=== PATIENT | female | born 1980 | race Caucasian/White ===

== ENCOUNTER 2016-08-29 10:30 | Emergency (ER) | payer SELFPAY ==
--- NOTE | 2016-08-29 13:23 | ED ORDER SUMMARY ---
..... Patient: ZACH MTZ OrderSheet [facility] VisitID: [id number] [place] [address] 36y, F Registration Date/Time: 08/29/2016 ORDER SHEET Weight: 113.3 kg (stated) Allergies: Penicillin GENERAL ORDERS: MEDICATION ORDERS: Ibuprofen PO 800 mg (NOW) (11:26 08/29/2016 EHassamireya R.N. verbal order read back to Alia Jerome) (11:28 EHassan R.N.) Hydrocodone-APAP PO 5/325 mg (NOW, HIGH ALERT MEDICATION) (12:41 08/29/2016 HBivens A.R.N.P.) (12:47 EHassan R.N.) IV FLUIDS: ORDER SHEET NOTES: [Electronically signed by Greer RowellRJakeN.PJake (13:41 08/29/2016)] [Electronically signed by Rajwinder Quach R.N. (17:57 08/29/2016)] [Electronically locked/signed by Rajwinder Quach R.N. (17:57 08/29/2016)]
--- NOTE | 2016-08-29 13:23 | ED CLINICAL REPORT ---
Clinical Report - Physicians/Mid Levels [facility] [address] [place] [address] 08/29/2016 10:30 Patient: ZACH MTZ Time Seen: 12:33; initial patient contact, initial documentation, patient care assumed. Arrived- By private vehicle. Historian- patient. HISTORY OF PRESENT ILLNESS Chief Complaint: DENTAL PAIN. This started last night and is still present. Pain described as severe. No sore throat, mouth sores, nasal discharge or congestion or ear pain. She has had toothache and swelling of the jaw and face. (tooth has been breaking off, and more broke off last night with pain, afraid to see dentist). Similar symptoms previously: Chronically. Recent medical care: Not recently seen/assessed. REVIEW OF SYSTEMS No fever or difficulty breathing. All systems otherwise negative, except as recorded above. PAST HISTORY See nurses notes. PROBLEMS: Ureterolithiasis. UTI - Urinary Tract Infection. Substance Abuse. Headache. Sinusitis. ADD - Attention Deficit Disorder. Dental Pain. Dental Caries. --11:11 Nanda Coleman, RJakeN. ADDITIONAL SURGERIES: no known surgeries. SOCIAL HISTORY Light tobacco smoker. Occasional alcohol use. History of occasional drug use: marijuana. Recently used drugs yesterday. No recent travel. Is a local resident. FAMILY HISTORY Negative. ADDITIONAL NOTES The nursing notes have been reviewed with agreement regarding the chief complaint, HPI, ROS, PMH and patient medications and allergies. PHYSICAL EXAM Vital Signs: 08/29/2016 11:09 BP: 125/66. HR: 100. RR: 18. O2 saturation: 98%. Temp: 97.7 F. Pain level now: 1010. Have been reviewed as normal and appear to be correct. Appearance: Alert. No acute distress. Head: Normal external inspection. Eyes: Pupils equal, round and reactive to light. Conjunctivae and eyelids normal. ENT: Moderate, extensive dental decay (lower left second molar) (tooth broken off at gum line with obvious decay and other molars capped). No gingival tenderness, induration, swelling or fluctuance. Ears normal. Nose normal. Pharynx normal. Lips normal. Gums normal. No trismus present. Uvula midline. Neck: Normal inspection. Trachea midline. No adenopathy. Thyroid normal. Neck supple. Respiratory: No respiratory distress. Skin: Normal skin color. No rash. Normal skin turgor. Extremities: Extremities exhibit normal ROM. Extremities nontender. Neuro: Oriented X 3. No motor deficit. No sensory deficit. PROGRESS AND PROCEDURES Patient counseled in person regarding the patient's stable condition and diagnosis. 12:39. Differential Diagnosis: Other possible considerations: dental pain, abscess, caries. Above considerations are based on history and physical exam. Differential diagnosis was discussed with patient. Disposition: Discharged home in good and improved condition (12:40). Condition: good and stable. CLINICAL IMPRESSION Dental caries (extensive decay) INSTRUCTIONS Warnings: GENERAL WARNINGS: Return or contact your physician immediately if your condition worsens or changes unexpectedly, if not improving as expected, or if other problems arise. Specifically return if problem worsens. Prescription Medications: Zofran 4 mg: Take 1 orally every six hours as needed for nausea/vomiting. Dispense ten (10). No refills. Substitution is permissible. Cleocin 300 mg: take 1 capsule orally every 6 hours for 7 days. No refills. Substitution is permissible. [place] 5 mg / 325 mg tablets: take 1 to 2 orally every 6 hours as needed for pain. Dispense fifteen (15). No refills. Substitution is permissible. Follow-up: Follow up with a dentist in about three days even if well. Call for an appointment. Summary of care provided to patient. Understanding of the discharge instructions verbalized by patient. (Electronically signed by Greer Rowell A.R.N.P. 08/29/2016 13:41)
--- NOTE | 2016-08-29 13:23 | ED ORDER SUMMARY ---
..... Patient: ZACH MTZ OrderSheet [facility] VisitID: [id number] [place] [address] 36y, F Registration Date/Time: 08/29/2016 ORDER SHEET Weight: 113.3 kg (stated) Allergies: Penicillin GENERAL ORDERS: MEDICATION ORDERS: Ibuprofen PO 800 mg (NOW) (11:26 08/29/2016 EHassamireya R.N. verbal order read back to Alia Jerome) (11:28 EHassan R.N.) Hydrocodone-APAP PO 5/325 mg (NOW, HIGH ALERT MEDICATION) (12:41 08/29/2016 HBivens A.R.N.P.) (12:47 EHassan R.N.) IV FLUIDS: ORDER SHEET NOTES: [Electronically signed by Greer RowellRJakeN.PJake (13:41 08/29/2016)] [Electronically signed by Rajwinder Quach R.N. (17:57 08/29/2016)] [Electronically locked/signed by Rajwinder Quach R.N. (17:57 08/29/2016)]
--- NOTE | 2016-08-29 13:23 | ED NURSING NOTES ---
Clinical Report - Nurses [facility] [address] [place] [address] 08/29/2016 10:30 Patient: ZACH MTZ TRIAGE Triage time 1107 AM. Acuity: LEVEL 5. Chief Complaint: LEFT LOWER TOOTHACHE and CHIPPED TOOTH and SWELLING OF JAW / FACE. Alert. No acute distress. SEPSIS SCREEN: Sepsis Screen. Negative (no infection suspected/documented). --11:14 Nanda Coleman R.N. 11:09 08/29/16. BP: 125/66 (regular adult cuff) taken on the left arm, via an automated monitor, while sitting. HR: 100. RR: 18. O2 saturation: 98% on room air. Temp: 97.7 F (oral). Pain level now: 02/13. --11:14 Nanda Coleman R.N. Weight: 113.3 kg stated. Height/Length: 64 inches Per Patient. BMI: 42.9. --11:12 Nanda Coleman R.N. Medications None. --11:11 Nanda Coleman R.N. Medication/allergy information source: the patient. --11:14 Nanda Coleman R.N. Allergies Penicillin. --11:11 Nanda Coleman R.N. History Arrived by private vehicle. Historian: patient. Accompanied by family. Primary physician (None). ( Pt states "scared of going to the dentist and a piece of my left side bottom tooth broke up" Here for some antibiotics). This started last night. She has no dental appointment scheduled. She has had facial pain and ear pain. No fever, hoarseness or mouth sores. She has had swelling of the face and a toothache. Treatment SYSTEMS SPEC: Took Tylenol and ibuprofen. PAST MEDICAL HX: Dental caries. Immunizations: status is unknown. SOCIAL HX: Current every day light tobacco smoker (cigarette)- less than 1/2 a pack per day. Occasional alcohol use; consumes beer occasionally. History of drug use: marijuana. Recently used drugs yesterday. No infectious disease exposure. ABUSE ASSESSMENT: No report of abuse. SELF HARM ASSESSMENT: A self harm assessment was performed. The patient answered "no" to the question "Do you have thoughts of harming or killing yourself?" and "Have you recently had thoughts about harming or killing others?". FALL RISK ASSESSMENT: Fall risk assessment completed. No fall risk identified. NUTRITIONAL RISK ASSESSMENT: The nutritional risk assessment revealed no deficiencies. FUNCTIONAL ASSESSMENT: Functional assessment: no impairments noted. LEARNING NEEDS ASSESSMENT: The learning needs assessment revealed no barriers. SKIN INTEGRITY ASSESSMENT: Skin integrity risk assessment completed. No skin integrity risk identified. --11:14 Nanda Coleman R.N. PROBLEMS: Ureterolithiasis. UTI - Urinary Tract Infection. Substance Abuse. Headache. Sinusitis. ADD - Attention Deficit Disorder. Dental Pain. Dental Caries. --11:11 Nanda Coleman R.N. ADDITIONAL SURGERIES: no known surgeries. Interventions ID band on patient. --11:14 Nanda Coleman R.N. PHYSICAL ASSESSMENT Ambulatory to room. GENERAL / NEURO / PSYCH: Alert. Oriented X 4. Appears in pain and anxious. HEENT: Pharynx within normal limits. Voice within normal limits. Dental tenderness. Dental decay (left lower molar area). Mucous membranes are pink. RESPIRATORY: Respirations not labored. CVS: Capillary refill less than 2 seconds. SKIN: Skin is warm and dry. Normal skin turgor. --11:15 Nanda Coleman R.N. NURSING PROGRESS NOTES The initial plan of care for this patient has been created This plan of care was discussed with the patient. Reassurance given. Patient identifiers checked. Call light placed in reach. Side rails up x 1. Bed placed in lowest position. Brakes of bed on. Patient ready for evaluation- ED physician notified. --11:15 Nanda Coleman R.N. 11:28 08/29/2016 Ibuprofen PO Tablets 800 mg given. Allergies verified and confirmed 5 rights. --11:28 Nanda Coleman R.N. Cold pack applied. Reassurance given. The patient is calm. Overall patient status is the same- she states feels the same. HEENT: The patient reports earache. --12:04 Nanda Coleman R.N. 12:03 08/29/16. BP: 128/54 (regular adult cuff) taken on the left arm, via an automated monitor, while sitting. HR: 84. RR: 14. O2 saturation: 98% on room air. Pain level now: 01/14. --12:04 Nanda Coleman R.N. 12:39 08/29/16. BP: 128/67 (regular adult cuff) taken on the left arm, via an automated monitor, while sitting. HR: 99. RR: 14. O2 saturation: 100% on room air. Temp: 98.2 F (oral). Pain level now: 12/14. --12:40 Nanda Coleman R.N. Reassurance given. The patient is calm. Overall patient status is improved- she states feels better. --12:40 Nanda Coleman R.N. 12:37 08/29/2016 Ibuprofen PO Response: no adverse reaction pain is improving. --12:47 Nanda Coleman R.N. 12:47 08/29/2016 Hydrocodone-APAP (Hydrocodone-Acetaminophen) PO 5/325 mg Tablets 1 tab given. Allergies verified, confirmed 5 rights and sedative warning given to the patient and patient's family. --12:47 Nanda Coleman R.N. DISPOSITION / DISCHARGE Discharge instructions provided and reviewed with the patient. Patient verbalized understanding. Written instructions provided in German. The patient was discharged home. She left the Emergency Department ambulatory and via private vehicle. Wearing Apparel Presser driving. Medication list reviewed and validated. --17:56 Rajwinder Quach R.N. 12:39 08/29/16. BP: 128/67 (regular adult cuff) taken on the left arm, via an automated monitor, while sitting. HR: 99. RR: 14. O2 saturation: 100% on room air. Temp: 98.2 F (oral). Pain level now: 12/14. 12:03 08/29/16. BP: 128/54 (regular adult cuff) taken on the left arm, via an automated monitor, while sitting. HR: 84. RR: 14. O2 saturation: 98% on room air. Pain level now: 01/14. 11:09 08/29/16. BP: 125/66 (regular adult cuff) taken on the left arm, via an automated monitor, while sitting. HR: 100. RR: 18. O2 saturation: 98% on room air. Temp: 97.7 F (oral). Pain level now: 02/13. --17:56 Rajwinder Quach R.N. Locked/Released at 08/29/2016 17:57 by Rajwinder Quach R.N.
--- NOTE | 2016-08-29 13:23 | ED NURSING NOTES ---
Clinical Report - Nurses [facility] [address] [place] [address] 08/29/2016 10:30 Patient: ZACH MTZ TRIAGE Triage time 1107 AM. Acuity: LEVEL 5. Chief Complaint: LEFT LOWER TOOTHACHE and CHIPPED TOOTH and SWELLING OF JAW / FACE. Alert. No acute distress. SEPSIS SCREEN: Sepsis Screen. Negative (no infection suspected/documented). --11:14 Nanda Coleman R.N. 11:09 08/29/16. BP: 125/66 (regular adult cuff) taken on the left arm, via an automated monitor, while sitting. HR: 100. RR: 18. O2 saturation: 98% on room air. Temp: 97.7 F (oral). Pain level now: 02/13. --11:14 Nanda Coleman R.N. Weight: 113.3 kg stated. Height/Length: 64 inches Per Patient. BMI: 42.9. --11:12 Nanda Coleman R.N. Medications None. --11:11 Nanda Coleman R.N. Medication/allergy information source: the patient. --11:14 Nanda Coleman R.N. Allergies Penicillin. --11:11 Nanda Coleman R.N. History Arrived by private vehicle. Historian: patient. Accompanied by family. Primary physician (None). ( Pt states "scared of going to the dentist and a piece of my left side bottom tooth broke up" Here for some antibiotics). This started last night. She has no dental appointment scheduled. She has had facial pain and ear pain. No fever, hoarseness or mouth sores. She has had swelling of the face and a toothache. 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 PAST MEDICAL HX: Dental caries. Immunizations: status is unknown. SOCIAL HX: Current every day light tobacco smoker (cigarette)- less than 1/2 a pack per day. Occasional alcohol use; consumes beer occasionally. History of drug use: marijuana. Recently used drugs yesterday. No infectious disease exposure. ABUSE ASSESSMENT: No report of abuse. SELF HARM ASSESSMENT: A self harm assessment was performed. The patient answered "no" to the question "Do you have thoughts of harming or killing yourself?" and "Have you recently had thoughts about harming or killing others?". FALL RISK ASSESSMENT: Fall risk assessment completed. No fall risk identified. NUTRITIONAL RISK ASSESSMENT: The nutritional risk assessment revealed no deficiencies. FUNCTIONAL ASSESSMENT: Functional assessment: no impairments noted. LEARNING NEEDS ASSESSMENT: The learning needs assessment revealed no barriers. SKIN INTEGRITY ASSESSMENT: Skin integrity risk assessment completed. No skin integrity risk identified. --11:14 Nanda Coleman R.N. PROBLEMS: Ureterolithiasis. UTI - Urinary Tract Infection. Substance Abuse. Headache. Sinusitis. ADD - Attention Deficit Disorder. Dental Pain. Dental Caries. --11:11 Nanda Coleman R.N. ADDITIONAL SURGERIES: no known surgeries. Interventions ID band on patient. --11:14 Nanda Coleman R.N. PHYSICAL ASSESSMENT Ambulatory to room. GENERAL / NEURO / PSYCH: Alert. Oriented X 4. Appears in pain and anxious. HEENT: Pharynx within normal limits. Voice within normal limits. Dental tenderness. Dental decay (left lower molar area). Mucous membranes are pink. RESPIRATORY: Respirations not labored. CVS: Capillary refill less than 2 seconds. SKIN: Skin is warm and dry. Normal skin turgor. --11:15 Nanda Coleman R.N. NURSING PROGRESS NOTES The initial plan of care for this patient has been created This plan of care was discussed with the patient. Reassurance given. Patient identifiers checked. Call light placed in reach. Side rails up x 1. Bed placed in lowest position. Brakes of bed on. Patient ready for evaluation- ED physician notified. --11:15 Nanda Coleman R.N. 11:28 08/29/2016 Ibuprofen PO Tablets 800 mg given. Allergies verified and confirmed 5 rights. --11:28 Nanda Coleman R.N. Cold pack applied. Reassurance given. The patient is calm. Overall patient status is the same- she states feels the same. HEENT: The patient reports earache. --12:04 Nanda Coleman R.N. 12:03 08/29/16. BP: 128/54 (regular adult cuff) taken on the left arm, via an automated monitor, while sitting. HR: 84. RR: 14. O2 saturation: 98% on room air. Pain level now: 01/14. --12:04 Nanda Coleman R.N. 12:39 08/29/16. BP: 128/67 (regular adult cuff) taken on the left arm, via an automated monitor, while sitting. HR: 99. RR: 14. O2 saturation: 100% on room air. Temp: 98.2 F (oral). Pain level now: 12/14. --12:40 Nanda Coleman R.N. Reassurance given. The patient is calm. Overall patient status is improved- she states feels better. --12:40 Nanda Coleman R.N. 12:37 08/29/2016 Ibuprofen PO Response: no adverse reaction pain is improving. --12:47 Nanda Coleman R.N. 12:47 08/29/2016 Hydrocodone-APAP (Hydrocodone-Acetaminophen) PO 5/325 mg Tablets 1 tab given. Allergies verified, confirmed 5 rights and sedative warning given to the patient and patient's family. --12:47 Nanda Coleman R.N. DISPOSITION / DISCHARGE Discharge instructions provided and reviewed with the patient. Patient verbalized understanding. Written instructions provided in Bulgarian. The patient was discharged home. She left the Emergency Department ambulatory and via private vehicle. Marketing Technologist driving. Medication list reviewed and validated. --17:56 Rajwinder Quach R.N. 12:39 08/29/16. BP: 128/67 (regular adult cuff) taken on the left arm, via an automated monitor, while sitting. HR: 99. RR: 14. O2 saturation: 100% on room air. Temp: 98.2 F (oral). Pain level now: 12/14. 12:03 08/29/16. BP: 128/54 (regular adult cuff) taken on the left arm, via an automated monitor, while sitting. HR: 84. RR: 14. O2 saturation: 98% on room air. Pain level now: 01/14. 11:09 08/29/16. BP: 125/66 (regular adult cuff) taken on the left arm, via an automated monitor, while sitting. HR: 100. RR: 18. O2 saturation: 98% on room air. Temp: 97.7 F (oral). Pain level now: 02/13. --17:56 Rajwinder Quach R.N. Locked/Released at 08/29/2016 17:57 by Rajwinder Quach R.N.
--- NOTE | 2016-08-29 17:57 | ED MAR SUMMARY ---
..... Medication Administration Record [address] [place] [address] Patient: ZACH MTZ Visit ID: [id number] 36y, F Weight: 113.3 kg Height/Length: 64 in BMI: 42.9 ALLERGIES: Penicillin Given 11:28 08/29/2016 Nanda Coleman RJakeNJake Medication Administered: IBUPROFEN [PO], Dose: 800 mg Tablets PO. Medication Ordered: Ibuprofen PO 800 mg (NOW). Given 12:47 08/29/2016 Nanda Coleman, R.N. Medication Administered: HYDROCODONE-APAP [PO] (HYDROCODONE-ACETAMINOPHEN), Dose: 1 tab 5/325 mg Tablets PO. Medication Ordered: Hydrocodone-APAP PO 5/325 mg (NOW, HIGH ALERT MEDICATION).
--- NOTE | 2016-08-29 17:57 | ED MED RECONCILIATION SUMMARY ---
Patient: ZACH MTZ Medication Reconciliation Report [facility] VisitID: [id number] [place] [address] 36y, F Registration Date/Time: 08/29/2016 Weight: 113.3 kg Height/Length: 64 in. BMI: 42.9 ALLERGIES: Penicillin The patient's Home Medications are listed below: NONE. The source(s) of the original Home Medication information: patient The following Medications were given to the patient in the Emergency Department: Ibuprofen [PO] PO 800 mg, administered: 08/29/2016 11:28:00 AM Hydrocodone-APAP [PO] PO 1 tab, administered: 08/29/2016 12:47:00 PM The following Medications were prescribed to the patient: Zofran 4 mg: Take 1 orally every six hours as needed for nausea/vomiting. Dispense ten (10). No refills. Substitution is permissible. -- Greer Rowell A.R.N.P. Cleocin 300 mg: take 1 capsule orally every 6 hours for 7 days. No refills. Substitution is permissible. -- Greer Rowell A.R.N.P. [place] 5 mg / 325 mg tablets: take 1 to 2 orally every 6 hours as needed for pain. Dispense fifteen (15). No refills. Substitution is permissible. -- Greer Rowell A.R.N.P.
--- NOTE | 2016-08-29 17:57 | ED MAR SUMMARY ---
..... Medication Administration Record [facility] [address] [place] [address] Patient: ZACH MTZ Visit ID: [id number] 36y, F Weight: 113.3 kg Height/Length: 64 in BMI: 42.9 ALLERGIES: Penicillin Given 11:28 08/29/2016 Nanda Coleman RJakeNJake Medication Administered: IBUPROFEN [PO], Dose: 800 mg Tablets PO. Medication Ordered: Ibuprofen PO 800 mg (NOW). Given 12:47 08/29/2016 Nanda Coleman, R.N. Medication Administered: HYDROCODONE-APAP [PO] (HYDROCODONE-ACETAMINOPHEN), Dose: 1 tab 5/325 mg Tablets PO. Medication Ordered: Hydrocodone-APAP PO 5/325 mg (NOW, HIGH ALERT MEDICATION).
--- NOTE | 2016-08-29 17:57 | ED MED RECONCILIATION SUMMARY ---
Patient: ZACH MTZ Medication Reconciliation Report [facility] VisitID: [id number] [place] [address] 36y, F Registration Date/Time: 08/29/2016 Weight: 113.3 kg Height/Length: 64 in. BMI: 42.9 ALLERGIES: Penicillin The patient's Home Medications are listed below: NONE. The source(s) of the original Home Medication information: patient The following Medications were given to the patient in the Emergency Department: Ibuprofen [PO] PO 800 mg, administered: 08/29/2016 11:28:00 AM Hydrocodone-APAP [PO] PO 1 tab, administered: 08/29/2016 12:47:00 PM The following Medications were prescribed to the patient: Zofran 4 mg: Take 1 orally every six hours as needed for nausea/vomiting. Dispense ten (10). No refills. Substitution is permissible. -- Greer Rowell A.R.N.P. Cleocin 300 mg: take 1 capsule orally every 6 hours for 7 days. No refills. Substitution is permissible. -- Greer Rowell A.R.N.P. [place] 5 mg / 325 mg tablets: take 1 to 2 orally every 6 hours as needed for pain. Dispense fifteen (15). No refills. Substitution is permissible. -- Greer Rowell A.R.N.P.
--- NOTE | 2016-08-29 17:57 | ED DISCHARGE INSTRUCTIONS ---
Patient: ZACH MTZ General Instructions [facility] VisitID: [id number] [place] [address] 36y, F Registration Date/Time: 08/29/2016 Dental caries (extensive decay) INSTRUCTIONS Warnings: GENERAL WARNINGS: Return or contact your physician immediately if your condition worsens or changes unexpectedly, if not improving as expected, or if other problems arise. Specifically return if problem worsens. Prescription Medications: Zofran 4 mg: Take 1 orally every six hours as needed for nausea/vomiting. Dispense ten (10). No refills. Substitution is permissible. Cleocin 300 mg: take 1 capsule orally every 6 hours for 7 days. No refills. Substitution is permissible. [place] 5 mg / 325 mg tablets: take 1 to 2 orally every 6 hours as needed for pain. Dispense fifteen (15). No refills. Substitution is permissible. Follow-up: Follow up with a dentist in about three days even if well. Call for an appointment. Summary of care provided to patient. Understanding of the discharge instructions verbalized by patient. ADDITIONAL INFORMATION Dental Cavity A dental cavity is a pit or crater in the enamel surface of the tooth. This exposes the sensitive inner layer of the tooth and causes pain. If untreated, the cavity will get bigger and may cause an infection or abscess in the root of the tooth. An infection in the tooth is a much more serious problem and may require a root canal or removal of the entire tooth. The tooth pain may be made worse by drinking hot or cold fluids. It may spread from the tooth to the ear or jaw on the same side. Home Care: Avoid hot and cold foods, and liquids since your tooth may be sensitive to temperature changes. If your tooth is chipped or cracked, or if there is a large open cavity, apply OIL OF CLOVES (available hsaj-lvm-svbudqg in drug stores) directly to the tooth to reduce pain. Some pharmacies carry an mlsu-klo-lcfkdai "toothache kit." This contains oil of cloves and a paste, which can be applied over the exposed tooth to decrease sensitivity. An ice pack on your jaw over the sore area may help to reduce pain. You may use acetaminophen (Tylenol) or ibuprofen (Motrin, Advil) to control pain, unless another pain medicine was prescribed. [ NOTE: If you have liver disease or ever had a stomach ulcer, talk with your doctor before using these medicines.] If you have signs of an infection, an antibiotic will be given. Take it as directed. Follow-Up with your dentist as directed. Although your pain may go away with the treatment given, only a dentist can fully evaluate and treat this problem to prevent further tooth damage. Get Prompt Medical Attention if any of the following occur: Redness or swelling of the face Pain worsens or spreads to the neck Fever over 100.5 F (38C) Unusual drowsiness; headache or stiff neck; weakness or fainting Pus drains from the tooth or gum Difficulty swallowing or breathing Dental Pain A crack or cavity in the tooth, which exposes the sensitive inner area of the tooth can cause tooth pain. An infection in the gum or the root of the tooth can cause pain and swelling. The pain is often made worse by drinking hot or cold fluids, or biting on hard foods. Pain may spread from the tooth to the ear or jaw on the same side. Home Care: Avoid hot and cold foods and liquids since your tooth may be sensitive to temperature changes. If your tooth is chipped or cracked, or if there is a large open cavity, apply OIL OF CLOVES (available rvnx-iuj-prsxgyr in drug stores) directly to the tooth to reduce pain. Some pharmacies carry an qbtw-pdv-dxbrvqo "toothache kit." This contains a paste, which can be applied over the exposed tooth to decrease sensitivity. A cold pack on your jaw over the sore area may help reduce pain. You may use acetaminophen (Tylenol) or ibuprofen (Motrin, Advil) to control pain, unless another medicine was prescribed. [ NOTE: If you have chronic liver or kidney disease or ever had a stomach ulcer or GI bleeding, talk with your doctor before using these medicines.] If you have signs of an infection, an antibiotic will be given. Take it as directed. Follow-Up as directed with a dentist. Your pain may go away with the treatment given. However, only a dentist can fully evaluate and treat the cause and prevent the pain from coming back again. TOOTHACHE IS A SIGN OF DISEASE IN YOUR TOOTH AND SHOULD BE EXAMINED AND TREATED BY A DENTIST. Get Prompt Medical Attention if any of the following occur: Your face becomes swollen or red Pain worsens or spreads to the neck Fever over 100.4 F (38.0 C) Unusual drowsiness; headache or stiff neck; weakness or fainting Pus drains from the tooth Difficulty swallowing or breathing Ondansetron Hydrochloride Oral tablet What is this medicine? ONDANSETRON (on UGO se tania) is used to treat nausea and vomiting caused by chemotherapy. It is also used to prevent or treat nausea and vomiting after surgery. How should I use this medicine? Take this medicine by mouth with a glass of water. Follow the directions on your prescription label. Take your doses at regular intervals. Do not take your medicine more often than directed. Talk to your ship runner regarding the use of this medicine in children. Special care may be needed. What side effects may I notice from receiving this medicine? Side effects that you should report to your doctor or health nursing care partner as soon as possible: allergic reactions like skin rash, itching or hives, swelling of the face, lips or tongue breathing problems dizziness fast or irregular heartbeat feeling faint or lightheaded, falls fever and chills swelling of the hands or feet tightness in the chest Side effects that usually do not require medical attention (report to your doctor or health nursing care partner if they continue or are bothersome): constipation or diarrhea headache What may interact with this medicine? Do not take this medicine with any of the following medications: -apomorphine -cisapride -dofetilide -dronedarone -pimozide -thioridazine -ziprasidone This medicine may also interact with the following medications: -carbamazepine -phenytoin -rifampicin -tramadol -other medicines that prolong the QT interval (cause an abnormal heart rhythm) What if I miss a dose? If you miss a dose, take it as soon as you can. If it is almost time for your next dose, take only that dose. Do not take double or extra doses. Where should I keep my medicine? Keep out of the reach of children. Store between 2 and 30 degrees C (36 and 86 degrees F). Throw away any unused medicine after the expiration date. What should I tell my health care provider before I take this medicine? They need to know if you have any of these conditions: heart disease history of irregular heartbeat liver disease low levels of magnesium or potassium in the blood an unusual or allergic reaction to ondansetron, granisetron, other medicines, foods, dyes, or preservatives or trying to get breast-feeding What should I watch for while using this medicine? Check with your doctor or health nursing care partner right away if you have any sign of an allergic reaction. Clindamycin Hydrochloride Oral capsule What is this medicine? CLINDAMYCIN (BEBA Ortega) is a lincosamide antibiotic. It is used to treat certain kinds of bacterial infections. It will not work for colds, flu, or other viral infections. How should I use this medicine? Take this medicine by mouth with a full glass of water. Follow the directions on the prescription label. You can take this medicine with food or on an empty stomach. If the medicine upsets your stomach, take it with food. Take your medicine at regular intervals. Do not take your medicine more often than directed. Take all of your medicine as directed even if you think your are better. Do not skip doses or stop your medicine early. Talk to your ship runner regarding the use of this medicine in children. Special care may be needed. What side effects may I notice from receiving this medicine? Side effects that you should report to your doctor or health nursing care partner as soon as possible: allergic reactions like skin rash, itching or hives, swelling of the face, lips, or tongue dark urine pain on swallowing redness, blistering, peeling or loosening of the skin, including inside the mouth unusual bleeding or bruising unusually weak or tired yellowing of eyes or skin Side effects that usually do not require medical attention (report to your doctor or health nursing care partner if they continue or are bothersome): diarrhea itching in the rectal or genital area joint pain nausea, vomiting stomach pain What may interact with this medicine? chloramphenicol erythromycin kaolin products What if I miss a dose? If you miss a dose, take it as soon as you can. If it is almost time for your next dose, take only that dose. Do not take double or extra doses. Where should I keep my medicine? Keep out of the reach of children. Store at room temperature between 20 and 25 degrees C (68 and 77 degrees F). Throw away any unused medicine after the expiration date. What should I tell my health care provider before I take this medicine? They need to know if you have any of these conditions: kidney disease liver disease stomach problems like colitis an unusual or allergic reaction to clindamycin, lincomycin, or other medicines, foods, dyes like tartrazine or preservatives or trying to get breast-feeding What should I watch for while using this medicine? Tell your doctor or healthcare professional if your symptoms do not start to get better or if they get worse. Do not treat diarrhea with over the counter products. Contact your doctor if you have diarrhea that lasts more than 2 days or if it is severe and watery. Hydrocodone Bitartrate, Acetaminophen Oral tablet What is this medicine? ACETAMINOPHEN; HYDROCODONE (a set a [place] juve fen; jose francisco droe KOE done) is a pain reliever. It is used to treat mild to moderate pain. How should I use this medicine? Take this medicine by mouth. Swallow it with a full glass of water. Follow the directions on the prescription label. If the medicine upsets your stomach, take the medicine with food or milk. Do not take more than you are told to take. Talk to your ship runner regarding the use of this medicine in children. This medicine is not approved for use in children. What side effects may I notice from receiving this medicine? Side effects that you should report to your doctor or health nursing care partner as soon as possible: allergic reactions like skin rash, itching or hives, swelling of the face, lips, or tongue breathing problems confusion feeling faint or lightheaded, falls stomach pain yellowing of the eyes or skin Side effects that usually do not require medical attention (report to your doctor or health nursing care partner if they continue or are bothersome): nausea, vomiting stomach upset What may interact with this medicine? alcohol antihistamines isoniazid medicines for depression, anxiety, or psychotic disturbances medicines for sleep muscle relaxants naltrexone narcotic medicines (opiates) for pain phenobarbital ritonavir tramadol What if I miss a dose? If you miss a dose, take it as soon as you can. If it is almost time for your next dose, take only that dose. Do not take double or extra doses. Where should I keep my medicine? Keep out of the reach of children. This medicine can be abused. Keep your medicine in a safe place to protect it from theft. Do not share this medicine with anyone. Selling or giving away this medicine is dangerous and against the law. Store at room temperature between 15 and 30 degrees C (59 and 86 degrees F). Protect from light. Keep container tightly closed. Throw away any unused medicine after the expiration date. Discard unused medicine and used packaging carefully. Pets and children can be harmed if they find used or lost packages. What should I tell my health care provider before I take this medicine? They need to know if you have any of these conditions: brain tumor Crohn's disease, inflammatory bowel disease, or ulcerative colitis drink more than 3 alcohol-containing drinks per day drug abuse or addiction head injury heart or circulation problems kidney disease or problems going to the bathroom liver disease lung disease, asthma, or breathing problems an unusual or allergic reaction to acetaminophen, hydrocodone, other opioid analgesics, other medicines, foods, dyes, or preservatives or trying to get breast-feeding What should I watch for while using this medicine? Tell your doctor or health nursing care partner if your pain does not go away, if it gets worse, or if you have new or a different type of pain. You may develop tolerance to the medicine. Tolerance means that you will need a higher dose of the medicine for pain relief. Tolerance is normal and is expected if you take the medicine for a long time. Do not suddenly stop taking your medicine because you may develop a severe reaction. Your body becomes used to the medicine. This does NOT mean you are addicted. Addiction is a behavior related to getting and using a drug for a non-medical reason. If you have pain, you have a medical reason to take pain medicine. Your doctor will tell you how much medicine to take. If your doctor wants you to stop the medicine, the dose will be slowly lowered over time to avoid any side effects. You may get drowsy or dizzy when you first start taking the medicine or change doses. Do not drive, use machinery, or do anything that may be dangerous until you know how the medicine affects you. Stand or sit up slowly. There are different types of narcotic medicines (opiates) for pain. If you take more than one type at the same time, you may have more side effects. Give your health care provider a list of all medicines you use. Your doctor will tell you how much medicine to take. Do not take more medicine than directed. Call emergency for help if you have problems breathing. The medicine will cause constipation. Try to have a bowel movement at least every 2 to 3 days. If you do not have a bowel movement for 3 days, call your doctor or health nursing care partner. Too much acetaminophen can be very dangerous. Do not take Tylenol (acetaminophen) or medicines that contain acetaminophen with this medicine. Many non-prescription medicines contain acetaminophen. Always read the labels carefully. You have been given the following additional information: Dental Cavity Dental Pain Ondansetron Hydrochloride Oral tablet Clindamycin Hydrochloride Oral capsule Hydrocodone Bitartrate, Acetaminophen Oral tablet (Electronically signed by Greer Rowell A.R.N.P. 08/29/2016 13:41)
--- NOTE | 2016-08-29 17:57 | ED DISCHARGE INSTRUCTIONS ---
Patient: ZACH MTZ General Instructions [facility] VisitID: [id number] [place] [address] 36y, F Registration Date/Time: 08/29/2016 Dental caries (extensive decay) INSTRUCTIONS Warnings: GENERAL WARNINGS: Return or contact your physician immediately if your condition worsens or changes unexpectedly, if not improving as expected, or if other problems arise. Specifically return if problem worsens. Prescription Medications: Zofran 4 mg: Take 1 orally every six hours as needed for nausea/vomiting. Dispense ten (10). No refills. Substitution is permissible. Cleocin 300 mg: take 1 capsule orally every 6 hours for 7 days. No refills. Substitution is permissible. Thorp 5 mg / 325 mg tablets: take 1 to 2 orally every 6 hours as needed for pain. Dispense fifteen (15). No refills. Substitution is permissible. Follow-up: Follow up with a dentist in about three days even if well. Call for an appointment. Summary of care provided to patient. Understanding of the discharge instructions verbalized by patient. ADDITIONAL INFORMATION Dental Cavity A dental cavity is a pit or crater in the enamel surface of the tooth. This exposes the sensitive inner layer of the tooth and causes pain. If untreated, the cavity will get bigger and may cause an infection or abscess in the root of the tooth. An infection in the tooth is a much more serious problem and may require a root canal or removal of the entire tooth. The tooth pain may be made worse by drinking hot or cold fluids. It may spread from the tooth to the ear or jaw on the same side. Home Care: Avoid hot and cold foods, and liquids since your tooth may be sensitive to temperature changes. If your tooth is chipped or cracked, or if there is a large open cavity, apply OIL OF CLOVES (available wpkz-fdl-qsldiau in drug stores) directly to the tooth to reduce pain. Some pharmacies carry an eijx-fbt-qqejnft "toothache kit." This contains oil of cloves and a paste, which can be applied over the exposed tooth to decrease sensitivity. An ice pack on your jaw over the sore area may help to reduce pain. You may use acetaminophen (Tylenol) or ibuprofen (Motrin, Advil) to control pain, unless another pain medicine was prescribed. [ NOTE: If you have liver disease or ever had a stomach ulcer, talk with your doctor before using these medicines.] If you have signs of an infection, an antibiotic will be given. Take it as directed. Follow-Up with your dentist as directed. Although your pain may go away with the treatment given, only a dentist can fully evaluate and treat this problem to prevent further tooth damage. Get Prompt Medical Attention if any of the following occur: Redness or swelling of the face Pain worsens or spreads to the neck Fever over 100.5 F (38C) Unusual drowsiness; headache or stiff neck; weakness or fainting Pus drains from the tooth or gum Difficulty swallowing or breathing Dental Pain A crack or cavity in the tooth, which exposes the sensitive inner area of the tooth can cause tooth pain. An infection in the gum or the root of the tooth can cause pain and swelling. The pain is often made worse by drinking hot or cold fluids, or biting on hard foods. Pain may spread from the tooth to the ear or jaw on the same side. Home Care: Avoid hot and cold foods and liquids since your tooth may be sensitive to temperature changes. If your tooth is chipped or cracked, or if there is a large open cavity, apply OIL OF CLOVES (available ahse-cdp-pstxmcn in drug stores) directly to the tooth to reduce pain. Some pharmacies carry an cnqj-grn-afmytzj "toothache kit." This contains a paste, which can be applied over the exposed tooth to decrease sensitivity. A cold pack on your jaw over the sore area may help reduce pain. You may use acetaminophen (Tylenol) or ibuprofen (Motrin, Advil) to control pain, unless another medicine was prescribed. [ NOTE: If you have chronic liver or kidney disease or ever had a stomach ulcer or GI bleeding, talk with your doctor before using these medicines.] If you have signs of an infection, an antibiotic will be given. Take it as directed. Follow-Up as directed with a dentist. Your pain may go away with the treatment given. However, only a dentist can fully evaluate and treat the cause and prevent the pain from coming back again. TOOTHACHE IS A SIGN OF DISEASE IN YOUR TOOTH AND SHOULD BE EXAMINED AND TREATED BY A DENTIST. Get Prompt Medical Attention if any of the following occur: Your face becomes swollen or red Pain worsens or spreads to the neck Fever over 100.4 F (38.0 C) Unusual drowsiness; headache or stiff neck; weakness or fainting Pus drains from the tooth Difficulty swallowing or breathing Ondansetron Hydrochloride Oral tablet What is this medicine? ONDANSETRON (on UGO se tania) is used to treat nausea and vomiting caused by chemotherapy. It is also used to prevent or treat nausea and vomiting after surgery. How should I use this medicine? Take this medicine by mouth with a glass of water. Follow the directions on your prescription label. Take your doses at regular intervals. Do not take your medicine more often than directed. Talk to your cytology teacher regarding the use of this medicine in children. Special care may be needed. What side effects may I notice from receiving this medicine? Side effects that you should report to your doctor or health director of career resources as soon as possible: allergic reactions like skin rash, itching or hives, swelling of the face, lips or tongue breathing problems dizziness fast or irregular heartbeat feeling faint or lightheaded, falls fever and chills swelling of the hands or feet tightness in the chest Side effects that usually do not require medical attention (report to your doctor or health director of career resources if they continue or are bothersome): constipation or diarrhea headache What may interact with this medicine? Do not take this medicine with any of the following medications: -apomorphine -cisapride -dofetilide -dronedarone -pimozide -thioridazine -ziprasidone This medicine may also interact with the following medications: -carbamazepine -phenytoin -rifampicin -tramadol -other medicines that prolong the QT interval (cause an abnormal heart rhythm) What if I miss a dose? If you miss a dose, take it as soon as you can. If it is almost time for your next dose, take only that dose. Do not take double or extra doses. Where should I keep my medicine? Keep out of the reach of children. Store between 2 and 30 degrees C (36 and 86 degrees F). Throw away any unused medicine after the expiration date. What should I tell my health care provider before I take this medicine? They need to know if you have any of these conditions: heart disease history of irregular heartbeat liver disease low levels of magnesium or potassium in the blood an unusual or allergic reaction to ondansetron, granisetron, other medicines, foods, dyes, or preservatives or trying to get breast-feeding What should I watch for while using this medicine? Check with your doctor or health director of career resources right away if you have any sign of an allergic reaction. Clindamycin Hydrochloride Oral capsule What is this medicine? CLINDAMYCIN (BEBA Ortega) is a lincosamide antibiotic. It is used to treat certain kinds of bacterial infections. It will not work for colds, flu, or other viral infections. How should I use this medicine? Take this medicine by mouth with a full glass of water. Follow the directions on the prescription label. You can take this medicine with food or on an empty stomach. If the medicine upsets your stomach, take it with food. Take your medicine at regular intervals. Do not take your medicine more often than directed. Take all of your medicine as directed even if you think your are better. Do not skip doses or stop your medicine early. Talk to your cytology teacher regarding the use of this medicine in children. Special care may be needed. What side effects may I notice from receiving this medicine? Side effects that you should report to your doctor or health director of career resources as soon as possible: allergic reactions like skin rash, itching or hives, swelling of the face, lips, or tongue dark urine pain on swallowing redness, blistering, peeling or loosening of the skin, including inside the mouth unusual bleeding or bruising unusually weak or tired yellowing of eyes or skin Side effects that usually do not require medical attention (report to your doctor or health director of career resources if they continue or are bothersome): diarrhea itching in the rectal or genital area joint pain nausea, vomiting stomach pain What may interact with this medicine? chloramphenicol erythromycin kaolin products What if I miss a dose? If you miss a dose, take it as soon as you can. If it is almost time for your next dose, take only that dose. Do not take double or extra doses. Where should I keep my medicine? Keep out of the reach of children. Store at room temperature between 20 and 25 degrees C (68 and 77 degrees F). Throw away any unused medicine after the expiration date. What should I tell my health care provider before I take this medicine? They need to know if you have any of these conditions: kidney disease liver disease stomach problems like colitis an unusual or allergic reaction to clindamycin, lincomycin, or other medicines, foods, dyes like tartrazine or preservatives or trying to get breast-feeding What should I watch for while using this medicine? Tell your doctor or healthcare professional if your symptoms do not start to get better or if they get worse. Do not treat diarrhea with over the counter products. Contact your doctor if you have diarrhea that lasts more than 2 days or if it is severe and watery. Hydrocodone Bitartrate, Acetaminophen Oral tablet What is this medicine? ACETAMINOPHEN; HYDROCODONE (a set a FED[place] juve fen; jose francisco droe KOE done) is a pain reliever. It is used to treat mild to moderate pain. How should I use this medicine? Take this medicine by mouth. Swallow it with a full glass of water. Follow the directions on the prescription label. If the medicine upsets your stomach, take the medicine with food or milk. Do not take more than you are told to take. Talk to your cytology teacher regarding the use of this medicine in children. This medicine is not approved for use in children. What side effects may I notice from receiving this medicine? Side effects that you should report to your doctor or health director of career resources as soon as possible: allergic reactions like skin rash, itching or hives, swelling of the face, lips, or tongue breathing problems confusion feeling faint or lightheaded, falls stomach pain yellowing of the eyes or skin Side effects that usually do not require medical attention (report to your doctor or health director of career resources if they continue or are bothersome): nausea, vomiting stomach upset What may interact with this medicine? alcohol antihistamines isoniazid medicines for depression, anxiety, or psychotic disturbances medicines for sleep muscle relaxants naltrexone narcotic medicines (opiates) for pain phenobarbital ritonavir tramadol What if I miss a dose? If you miss a dose, take it as soon as you can. If it is almost time for your next dose, take only that dose. Do not take double or extra doses. Where should I keep my medicine? Keep out of the reach of children. This medicine can be abused. Keep your medicine in a safe place to protect it from theft. Do not share this medicine with anyone. Selling or giving away this medicine is dangerous and against the law. Store at room temperature between 15 and 30 degrees C (59 and 86 degrees F). Protect from light. Keep container tightly closed. Throw away any unused medicine after the expiration date. Discard unused medicine and used packaging carefully. Pets and children can be harmed if they find used or lost packages. What should I tell my health care provider before I take this medicine? They need to know if you have any of these conditions: brain tumor Crohn's disease, inflammatory bowel disease, or ulcerative colitis drink more than 3 alcohol-containing drinks per day drug abuse or addiction head injury heart or circulation problems kidney disease or problems going to the bathroom liver disease lung disease, asthma, or breathing problems an unusual or allergic reaction to acetaminophen, hydrocodone, other opioid analgesics, other medicines, foods, dyes, or preservatives or trying to get breast-feeding What should I watch for while using this medicine? Tell your doctor or health director of career resources if your pain does not go away, if it gets worse, or if you have new or a different type of pain. You may develop tolerance to the medicine. Tolerance means that you will need a higher dose of the medicine for pain relief. Tolerance is normal and is expected if you take the medicine for a long time. Do not suddenly stop taking your medicine because you may develop a severe reaction. Your body becomes used to the medicine. This does NOT mean you are addicted. Addiction is a behavior related to getting and using a drug for a non-medical reason. If you have pain, you have a medical reason to take pain medicine. Your doctor will tell you how much medicine to take. If your doctor wants you to stop the medicine, the dose will be slowly lowered over time to avoid any side effects. You may get drowsy or dizzy when you first start taking the medicine or change doses. Do not drive, use machinery, or do anything that may be dangerous until you know how the medicine affects you. Stand or sit up slowly. There are different types of narcotic medicines (opiates) for pain. If you take more than one type at the same time, you may have more side effects. Give your health care provider a list of all medicines you use. Your doctor will tell you how much medicine to take. Do not take more medicine than directed. Call emergency for help if you have problems breathing. The medicine will cause constipation. Try to have a bowel movement at least every 2 to 3 days. If you do not have a bowel movement for 3 days, call your doctor or health director of career resources. Too much acetaminophen can be very dangerous. Do not take Tylenol (acetaminophen) or medicines that contain acetaminophen with this medicine. Many non-prescription medicines contain acetaminophen. Always read the labels carefully. You have been given the following additional information: Dental Cavity Dental Pain Ondansetron Hydrochloride Oral tablet Clindamycin Hydrochloride Oral capsule Hydrocodone Bitartrate, Acetaminophen Oral tablet (Electronically signed by Greer Rowell A.R.N.P. 08/29/2016 13:41)
== END 2016-08-29 13:20 | disposition home or self-care (01) ==
LOC: ED SRH 10:30
DX: K02.9 Dental caries, unspecified (principal); F17.219 Nicotine dependence, cigarettes, with unspecified nicotine-induced disorders; Z88.0 Allergy status to penicillin